=== PATIENT | female | born 1975 | race Caucasian/White ===

== ENCOUNTER 2017-03-13 20:01 | Emergency (ER) | payer OTHER ==
[~2017-03-13] VITALS: Ht 182.9 cm; Wt 59.0 kg
[~2017-03-13 20:01] MED LIST: GABAPENTIN100 MG ORAL; IMITREX50 MG ORAL; PROPRANOLOL HCL10 MG ORAL
[2017-03-13 20:02] VITALS: BP 112/81
[2017-03-13 21:05] VITALS: BP 112/81
[2017-03-13 21:11] LABS: MEAN CORPUSCULAR HEMOGLOBIN 32.7 PG (27.0-31.0); MEAN CORPUSCULAR HGB CONC 30.7 G/DL (32.0-36.0); MEAN CORPUSCULAR VOLUME 107 FL (80-99); MEAN PLATELET VOLUME 5.5 FL (6.5-10.1); PLATELET COUNT 116 K/UL (150-450); RED BLOOD COUNT 3.54 M/UL (4.20-5.40); WHITE BLOOD COUNT 3.4 K/UL (4.8-10.8)
--- NOTE | 2017-03-13 21:14 | Emergency Room Report ---
History of Present Illness General Chief Complaint: Dyspnea/Respdistress Source: Patient, EMS Present Illness HPI 41-year-old female, history of anxiety, presenting with alcohol intoxication anxiety Admits to drinking wine Came here, ambulatory, ANO x4 No SI or HI Allergies: Coded Allergies: No Known Allergies (Unverified , 03/13/17) Patient History Past Medical History: see triage record Past Surgical History: none Pertinent Family History: none Last Menstrual Period: last week Now: No Reviewed Nursing Documentation: PMH: Agreed, PSxH: Agreed Nursing Documentation-PMH Hx Hypertension: Yes Review of Systems All Other Systems: negative except mentioned in HPI Physical Exam Vital Signs Date Time Temp Pulse Resp B/P (MAP) Pulse Ox O2 Delivery O2 Flow Rate FiO2 03/13/17 19:53 98.1 79 18 116/83 96 Room Air Sp02 EP Interpretation: reviewed, normal General Appearance: alert, GCS 15, non-toxic, other - Anxious, smells of alcohol but is sober, ANO x4, very rude and hostile, ambulatory steady gait Head: normocephalic, atraumatic Eyes: bilateral eye normal inspection, bilateral eye PERRL, bilateral eye EOMI ENT: normal ENT inspection, normal pharynx, normal voice, moist mucus membranes Neck: normal inspection, full range of motion, supple Respiratory: normal inspection, lungs clear, normal breath sounds, no respiratory distress, no retraction, no wheezing, speaking full sentences, chest symmetrical Cardiovascular #1: normal inspection, regular rate, rhythm, no edema, normal capillary refill Cardiovascular #2: 2+ radial (R), 2+ radial (L) Gastrointestinal: normal inspection, non tender, soft, non-distended, no guarding Musculoskeletal: normal inspection, back normal, normal range of motion, non- tender Neurologic: normal inspection, alert, oriented x3, responsive, motor strength/ tone normal, sensory intact, normal gait, speech normal Psychiatric: judgement/insight normal, memory normal, no suicidal/homicidal ideation, no delusions, anxious Skin: normal inspection, normal color, no rash, warm/dry, well hydrated, normal turgor Medical Decision Making Diagnostic Impression: Primary Impression: Dyspnea Additional Impressions: Alcohol abuse Acute anxiety ER Course 41-year-old female to drinking alcohol presenting with anxiety, requesting anxiety medication Also complaining of shortness of breath DDX: Consumption of alcohol however appears sober at this time Shortness of breath likely related to anxiety lung exam is normal patient does not appear short of breath Plan: Will obtain basic labs, chest x-ray ER course: Patient has remained stable during ED stay. Has been talking on the phone with multiple friends, ambulatory around the emergency room, steady gait Became very hostile, yelling at staff, trying to leave with IV IV removed patient left AMA Disposition: Patient left AMA Please note that this Emergency Department Report was dictated using [employer] technology software, occasionally this can lead to erroneous entry secondary to interpretation by the dictation equipment Patient is clinically sober, is free from from distracting injury, and has intact judgement and capacity to decide to leave against medical advice. Patient verbalized understanding of my concern and my need to do wait for laboratory results, but patient states "I'm fine and I want to leave ". I explained to patient the risks of leaving AMA and patient informed that if they leave, they could get worse, ould become become critically ill, possibly become disabled or . Patient verbalized back to me understanding of these risks but still wants to leave. Last Vital Signs Date Time Temp Pulse Resp B/P (MAP) Pulse Ox O2 Delivery O2 Flow Rate FiO2 03/13/17 19:53 98.1 79 18 116/83 96 Room Air Disposition: AGAINST MEDICAL ADVICE Condition: Stable Referrals: [facility],REFERRING (PCP) Patient Instructions: Shortness of Breath, [id number], Generalized Anxiety Disorder Lisandra Kendall M.D. Mar 13, 2017 21:14
[2017-03-13 21:27] LABS: ALANINE AMINOTRANSFERASE 41 U/L (12-78); ALCOHOL 322 mg/dL; ANION GAP 13 mmol/L (5-15); ASPARTATE AMINO TRANSFERASE 58 U/L (15-37); CALCIUM 8.4 MG/DL (8.5-10.1); CARBON DIOXIDE 21 MMOL/L (21-32); CHLORIDE 110 MMOL/L (98-107); CREATININE 0.6 MG/DL (0.55-1.30); GLOMERULAR FILTRATION RATE > 60 mL/min (>60); POTASSIUM 4.1 MMOL/L (3.5-5.1); SODIUM 144 MMOL/L (136-145); TOTAL PROTEIN 7.8 G/DL (6.4-8.2)
[2017-03-13 21:42] LABS: BAND NEUTROPHILS % (MANUAL) 0 % (0-8); BASOPHILS % (MANUAL) 0 % (0-2); EOSINOPHILS % (MANUAL) 1 % (0-3); LYMPHOCYTES % (MANUAL) 57 % (20-45); NEUTROPHILS % (MANUAL) 26 % (45-75); PLATELET ESTIMATE DECREASED; PLATELET MORPHOLOGY NORMAL; TOTAL CELLS COUNTED 100
--- NOTE | 2017-03-14 09:47 | Diagnostic Imaging Report ---
Indication: SOB Technique: One view of the chest Comparison: none Findings: Lungs and pleural spaces are clear. Heart size is normal. Impression: No acute process
== END 2017-03-13 21:05 | disposition left against medical advice (07) ==
LOC: EDBD 20:01 → EMR 20:32
DX: R06.00 Dyspnea, unspecified (principal); F10.10 Alcohol abuse, uncomplicated; F41.9 Anxiety disorder, unspecified; I10 Essential (primary) hypertension
CPT/HCPCS: 36415; 71010; 80053; 80329; 85007; 85025; 99283